=== PATIENT | female | born 2000 | race Caucasian/White ===

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

== ENCOUNTER 2022-01-09 17:01 | Emergency (ER) | payer MEDICAID | END 2022-01-09 19:09 | disposition left against medical advice (07) | LOC: MW.ED 17:01 | DX: Z53.21 Procedure and treatment not carried out due to patient leaving prior to being seen by health care provider (principal) ==

== ENCOUNTER 2022-03-23 15:47 | Emergency (ER) | payer OTHER, MEDICAID ==
[2022-03-23] MEDS ORDERED: Sodium Chloride 0.9% 2.5 ML Syringe FLUSH PRN (16:38)
[2022-03-23] MEDS ORDERED: Sodium Chloride 0.9% 10 ML Syringe FLUSH PRN (16:38)
[2022-03-23 17:11] LABS: BLOOD UREA NITROGEN,BUN 7 mg/dL (7.0-18.0); CARBON DIOXIDE,CO2 19.7 mmol/L (21.0-32.0); CHLORIDE,CL 105 mmol/L (98-107); ESTIMATED GFR 133 mL/min (>60); GLUCOSE RANDOM 70 mg/dL (74-106); POTASSIUM,K 3.8 mmol/L (3.5-5.1); SODIUM,NA 138 mmol/L (136-145)
== END 2022-03-23 19:07 | disposition home or self-care (01) ==
LOC: MW.ED 15:47
DX: M25.521 Pain in right elbow (principal); R10.9 Unspecified abdominal pain; Z91.018 Allergy to other foods; Z91.040 Latex allergy status; V89.2XXA Person injured in unspecified motor-vehicle accident, traffic, initial encounter
CPT/HCPCS: 36415; 71045; 73080; 76700; 80053; 85025; 85610; 86850; 86900; 86901; 99285; J3490

== ENCOUNTER 2022-10-30 05:18 | Inpatient (IN) | payer MEDICAID ==
[2022-10-30] MEDS ORDERED: Sodium Chloride 0.9% 10 ML Syringe FLUSH PRN (09:30)
[2022-10-30] MEDS ORDERED: Water For Irrigation,Sterile 1,000 ML Container IRR PRN (09:30)
[2022-10-30] MEDS ORDERED: Lidocaine 1% 50 ML MDV INJECT PRN (09:30)
[2022-10-30] MEDS ORDERED: Terbutaline 1 MG/ML SDV SUBCUT PRN (09:30)
[2022-10-30] MEDS ORDERED: Oxytocin/0.9 % Sodium Chloride 30 UNIT/500 ML BAG IV SCH ×2 (09:30)
[2022-10-30] MEDS ORDERED: Misoprostol 25 MCG (1/4 of 100 MCG) Tab VAG PRN ×2 (09:30)
[2022-10-30] MEDS ORDERED: Sodium Chloride 0.9% 20 ML SDV IV PRN (09:30)
[2022-10-30] MEDS ORDERED: Sodium Chloride 0.9% 2.5 ML Syringe FLUSH PRN (09:30)
[2022-10-30] MEDS ORDERED: Misoprostol 200 MCG Tab PO PRN (09:30)
[2022-10-30] MEDS ORDERED: Carboprost Tromethamine 250 MCG/1 ML Amp IM PRN (09:30)
[2022-10-30] MEDS ORDERED: Butorphanol 1 MG/ML SDV IVPUSH PRN (09:30)
[2022-10-30] MEDS ORDERED: Methylergonovine 0.2 MG/1 ML Amp IM PRN (09:30)
[2022-10-30] MEDS ORDERED: Tranexamic Acid 1,000 MG in Sodium Chloride 0.9% 100 ML IV PRN (09:30)
[2022-10-30] MEDS: Lactated Ringers 1,000 ML IV SCH ×2 (11:38→12:54)
[2022-10-30] MEDS ORDERED: Ropivacaine/PF 400 MG/200 ML PCA ONE (12:02)
[2022-10-30] MEDS ORDERED: ePHEDrine 50 MG/ML SDV IVPUSH PRN (12:28)
[2022-10-30] MEDS ORDERED: Phenylephrine HCl 0.5 MG/5 ML AMP IVPUSH PRN (12:28)
[2022-10-30] MEDS ORDERED: Ropivacaine HCl/PF 400 MG in Premix Bag 1 BAG EPIDUR SCH (12:30)
[2022-10-30] MEDS ORDERED: Bisacodyl 10 MG Supp RECTAL PRN (18:01)
[2022-10-30] MEDS ORDERED: Witch Hazel Medicated Pads 40/Jar TOP PRN (18:01)
[2022-10-30] MEDS ORDERED: Ibuprofen 400 MG Tab PO PRN (18:01)
[2022-10-30] MEDS ORDERED: oxyCODONE 5 MG Tab PO PRN (18:01)
[2022-10-30] MEDS ORDERED: Benzocaine/Menthol 20%-0.5% Spray 78 GM Cannister TOP PRN (18:01)
[2022-10-30] MEDS ORDERED: Lanolin 100% Cream 7 GM Tube TOP PRN (18:01)
[2022-10-30] MEDS ORDERED: Acetaminophen 500 MG Tab PO PRN (18:01)
[2022-10-30] MEDS: Ibuprofen 800 MG Tab PO PRN (21:59)
[2022-10-30] MEDS: Acetaminophen 500 MG Tab PO PRN (22:00)
[2022-10-30] MEDS: Docusate Sodium 100 MG Cap PO PRN (22:00)
[2022-10-31] MEDS: Ibuprofen 800 MG Tab PO PRN (08:56)
[2022-10-31] MEDS: Acetaminophen 500 MG Tab PO PRN (08:57)
[2022-10-31] MEDS: Docusate Sodium 100 MG Cap PO PRN (08:58)
== END 2022-10-31 20:25 | disposition home or self-care (01) | DRG 806 ==
LOC: MW.OBCHECK 05:18 → MW.OB 05:19 → MW.OBCHECK 09:29 → MW.OB 09:30 → OBSVTOIN 17:26 → MW.OB 10-31 00:21
PROVIDERS: ADMIT Obstetrics & Gynecology; ATTEND Obstetrics & Gynecology
PROC: 10E0XZZ Delivery of Products of Conception, External Approach (ICD-10-PCS; principal; 2022-10-30)
PROC: 10907ZC Drainage of Amniotic Fluid, Therapeutic from Products of Conception, Via Natural or Artificial Opening (ICD-10-PCS; 2022-10-30)
PROC: 3E0R3BZ Introduction of Anesthetic Agent into Spinal Canal, Percutaneous Approach (ICD-10-PCS; 2022-10-30)
PROC: 00HU33Z Insertion of Infusion Device into Spinal Canal, Percutaneous Approach (ICD-10-PCS; 2022-10-30)
PROC: 0HQ9XZZ Repair Perineum Skin, External Approach (ICD-10-PCS; 2022-10-30)
DX: O48.0 Post-term pregnancy (principal); O72.1 Other immediate postpartum hemorrhage; Z37.0 Single live birth; O40.3XX0 Polyhydramnios, third trimester, not applicable or unspecified; O99.02 Anemia complicating childbirth; O70.0 First degree perineal laceration during delivery; O69.81X0 Labor and delivery complicated by cord around neck, without compression, not applicable or unspecified; Z3A.41 41 weeks gestation of pregnancy
CPT/HCPCS: 36415; 51702; 59025; 59409; 82803; 85027; 86592; 86850; 86900; 86901; A9270-GY; J2210; J2590; J2795; J7120

== ENCOUNTER 2023-12-09 20:59 | Emergency (ER) | payer MEDICAID ==
[2023-12-09] MEDS: Amoxicillin/Clavulanate K 875-125 MG Tab PO ONE (21:38)
== END 2023-12-09 21:42 | disposition home or self-care (01) ==
LOC: MW.ED 20:59
DX: H66.43 Suppurative otitis media, unspecified, bilateral (principal); Z91.048 Other nonmedicinal substance allergy status; Z91.018 Allergy to other foods; Z79.899 Other long term (current) drug therapy; Z75.8 Other problems related to medical facilities and other health care
CPT/HCPCS: 99282; A9270; 99283